=== PATIENT | male | born 1935 | race Caucasian/White ===

== ENCOUNTER → 2016-12-29 | Outpatient (CLI) | payer MEDICARE ==
[~2016-12-29] MED LIST: /GLIM4TA OR; ACET500C OR; ALBU17IN2 PO; ASPI325T PO; ATEN100T OR; ATEN100T PO; AUGM875T28 PO; CENTTAB47 PO; CIPR-249 PO; COLA100C5 PO; FLAG500T PO; GLUC1000 OR; HUMA100I3 SC; HUMA100I5 SC; HUMULIN N SUBQ; HYTRIN PO; INSULANT SC; INSUNSD SC; LISI-542 PO; LISI5TAB OR; METF10004 PO; MOM30SS PO; MYLI40DR PO; NIAC500T5 PO; OXYC10TA12 PO; PERC5TAB12 PO; POLYOPD OU; PROT1TAB2 PO; SIMV20TA2 OR; SIMV40TA2 PO; TERA10CA3 PO; TERA5CA PO; TERA5CAP3 OR; TYLE325T5 PO; ZOFR4TAB3 PO
--- NOTE | 2016-12-29 11:35 | REP ---
MRI ABDOMEN WITHOUT AND WITH IV GADOLINIUM: HISTORY: Non-small cell lung carcinoma. Granuloma. Comparison study December 15, 2014. MRI TECHNIQUE: Axial and coronal T1 and T2-weighted scans are obtained including true phase, spin echo, turbo spin echo, in- and [id number], and sequential post gadolinium enhanced 2D gradient echo T1-weighted fat sat images. Gadolinium enhancement dose: 16 mL of intravenous ProHance is administered. MRI FINDINGS: T2-weighted scans demonstrate a 0.3 cm cyst in the lateral aspect mid pole level right kidney. No hepatic or splenic mass lesion is seen. The adrenals are unremarkable bilaterally. There is no evidence of ascites. No upper abdominal or periaortic adenopathy is seen. No pancreatic mass lesion is observed. The gallbladder is not visualized consistent with surgical absence. Dynamically acquired sequential post gadolinium enhanced images show no visible liver lesion. No other abnormality. IMPRESSION: A small cyst lateral aspect right mid kidney. Otherwise negative MRI study of the abdomen without and with IV gadolinium. Signed by Segundo Lopez MD 12/29/2016 05:14 P
== END ==
LOC: M RAD 09:00
PROVIDERS: ATTEND Internal Medicine Medical Oncology
DX: C34.90 Malignant neoplasm of unspecified part of unspecified bronchus or lung (principal); J98.4 Other disorders of lung
CPT/HCPCS: 74183; A9576

== ENCOUNTER → 2017-01-04 | Outpatient (CLI) | payer MEDICARE ==
--- NOTE | 2017-01-04 21:32 | REP ---
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 Comparison: Comparison MRI study abdomen December 29, 2016. Comparison PET/CT study January 22, 2015. Comparison CT study of the chest January 12, 2016. TECHNIQUE: 50 minutes following the intravenous injection of a 10.3 mCi dose of F-18 FDG, three-dimensional PET scintigraphy is acquired from the skull base to the proximal thighs. Triplanar noncontrast CT scanning is acquired through the same anatomic range for attenuation correction, and image registration with scan parameters optimized to minimize radiation exposure to the patient. PET scintigraphy and CT datasets were fused and displayed on a workstation with multiplanar and projection display capability. PET/CT Findings: There are unfortunately several foci of hypermetabolic uptake in the chest. The most avid is in a subcarinal lymph node. This 2.7 cm lymph node shows maximum standard uptake value of 8.3. No other mediastinal hypermetabolic uptake is seen. There is hypermetabolic uptake just posterior to the right hilus medially with maximum SUV value in a 1.5 cm area of 5.4. In addition, there is hypermetabolic uptake anteriorly and medially in the right lung at the level of the transverse aorta with maximum SUV value 5.5 within the fibrotic soft tissues adjacent to the mediastinum. These soft tissues are more full than on the January 12, 2016 prior study. There is new small right pleural fluid and a small quantity of left pleural fluid. There is mildly increased although nonhypermetabolic uptake along the right pleural lining of the lung, maximum SUV value under 2. There is a small hypermetabolic lymph node focus deep to the pectoralis minor muscle high in the right axilla in a subcentimeter lymph node with maximum standard uptake value of 3.4. There is a tiny internal mammary john focus with maximum standard uptake value of 2.3. There is a 1 cm john focus in the epicardial fat at the base of the heart anteriorly to the right of midline with maximum standard uptake value of 3.0. These foci are all new and should be considered suspicious. No abnormal uptake is seen in the left lung. There is an AP window region mediastinal lymph node which is 1 cm in diameter and which is hypermetabolic as well. This has maximum standard uptake value of 3.7. Lastly in the chest, there is a mildly hypermetabolic small john focus of increased uptake in a paraesophageal lymph node with maximum standard uptake value of 3.2. There is a small quantity of pericardial fluid. No abnormal hypermetabolic lesion is seen within the liver. The hypermetabolic john uptake in celiac axis lymph nodes in the upper abdomen with maximum standard uptake value 2.9. This must be considered suspicious as well. No other abnormal hypermetabolic uptake is seen in the abdomen or pelvis. Impression: Suspicious foci of hypermetabolic uptake in the subcarinal and AP window region of the mediastinum in lymph nodes as well as in several foci in the right chest medially and along the pleural surface. New small bilateral pleural effusions and a small pericardial effusion. Mildly hypermetabolic john uptake is seen in celiac axis lymph node in the upper abdomen and in a small paraesophageal lymph node. There is also a suspicious right axillary lymph john focus. Signed by Segundo Lopez MD 01/05/2017 09:32 A
== END ==
LOC: M PLARAD 09:23
PROVIDERS: ATTEND Internal Medicine Medical Oncology
DX: C34.11 Malignant neoplasm of upper lobe, right bronchus or lung (principal); R91.8 Other nonspecific abnormal finding of lung field
CPT/HCPCS: 78815; A9552

== ENCOUNTER → 2017-01-09 | Outpatient (REF) | payer MEDICARE | LOC: M LAB REF 12:52 | PROVIDERS: ATTEND Internal Medicine Medical Oncology | DX: C34.90 Malignant neoplasm of unspecified part of unspecified bronchus or lung (principal) ==

== ENCOUNTER → 2017-01-16 | Outpatient (REF) | payer MEDICARE ==
[2017-01-16 19:42] LABS: FREE T4 0.24 NG/DL (0.76-1.46)
== END ==
LOC: M LAB REF 17:26
PROVIDERS: ATTEND Internal Medicine Medical Oncology
DX: C34.90 Malignant neoplasm of unspecified part of unspecified bronchus or lung (principal)

== ENCOUNTER → 2017-01-30 | Outpatient (CLI) | payer MEDICARE ==
--- NOTE | 2017-01-30 17:35 | REP ---
UNILATERAL LEFT LOWER EXTREMITY DUPLEX VEINS: HISTORY: Leg pain. There are no filling defects in the deep venous system. The deep venous system is patent. IMPRESSION: There is no deep venous thrombosis. Signed by Garfield Álvarez MD 01/30/2017 06:18 P
== END ==
LOC: M RAD 16:05
PROVIDERS: ATTEND Internal Medicine Medical Oncology
DX: M79.605 Pain in left leg (principal); M79.89 Other specified soft tissue disorders

== ENCOUNTER → 2017-02-28 | Outpatient (REF) | payer MEDICARE ==
[2017-02-28 19:12] LABS: FREE T4 0.6 NG/DL (0.76-1.46)
== END ==
LOC: M LAB REF 16:53
PROVIDERS: ATTEND Internal Medicine Medical Oncology
DX: C34.90 Malignant neoplasm of unspecified part of unspecified bronchus or lung (principal)

== ENCOUNTER → 2017-03-02 | Outpatient (CLI) | payer MEDICARE ==
--- NOTE | 2017-03-02 18:40 | ECHO ---
DATE OF PROCEDURE: 03/02/2017 REFERRING PHYSICIAN: Dr. Cecilia Angeles Study was performed 03/02/2017 on an outpatient basis for indication chemotherapy. The patient measures 70 inches and weighs 173 pounds. DIMENSIONS: IVS: 1.2 LV: 4.9 LVPW: 1.1 LA: 4.0 Aorta: 4.0 FINDINGS: The study is of acceptable technical quality. Left ventricle is normal size and normal systolic function. I estimate ejection fraction (EF) around 65%. No segmental wall motion abnormalities are appreciated. Borderline left ventricular hypertrophy (LVH) is present. Right ventricle appears grossly normal size and systolic function. Left atrium is at least mildly enlarged. Right atrium appears normal. There is small pericardial effusion without signs of cardiac compression. It is principally adjacent to right ventricle and right atrial free wall. Aortic valve is sclerotic. It has normal mobility though. There are also degenerative abnormalities of mitral valve with mild mitral annular calcifications and some thickening of mitral leaflets. Tricuspid valve appears normal. Pulmonic valve was not well seen. Inferior vena cava is of normal size. Aortic root is dilated (4.0 cm). Aortic arch and abdominal aorta were not well seen. Doppler interrogation reveals no aortic stenosis and mild aortic insufficiency. There is also mild mitral insufficiency and mild tricuspid insufficiency. Calculated pulmonary artery pressure is in 30s corresponding to mild pulmonary hypertension. Mitral inflow pattern and tissue Doppler imaging of mitral annulus revealed grade 1 diastolic dysfunction (E prime velocities of septal and lateral mitral annulus are 6.7 and 7.6 cm/s respectively). CONCLUSIONS: 1. Study is of acceptable technical quality. 2. Normal left ventricular (LV) size with borderline LVH and preserved LV systolic function. Grade 1 diastolic dysfunction. 3. Small noncompressive pericardial effusion. 4. Aortic sclerosis with no stenosis and mild insufficiency. 5. Normal central venous pressure. 6. Probably mild pulmonary hypertension. 7. Mildly dilated aortic root (4.0 cm). COMMENTS: Subacute bacterial endocarditis (SBE) prophylaxis is not recommended. If there is suspicion for malignant etiology of pericardial effusion, then short-term followup within the next few weeks is recommended.
== END ==
LOC: M CARPUL 10:23
PROVIDERS: ATTEND Internal Medicine Medical Oncology
DX: Z92.21 Personal history of antineoplastic chemotherapy (principal); I31.3 Pericardial effusion (noninflammatory); I70.0 Atherosclerosis of aorta; I77.819 Aortic ectasia, unspecified site; I35.8 Other nonrheumatic aortic valve disorders

== ENCOUNTER → 2017-03-16 | Outpatient (CLI) | payer MEDICARE ==
[~2017-03-16] MED LIST changes: +ISOVUE-370 76% 100ML VIAL (Q9967) As Ordered ONE
--- NOTE | 2017-03-16 15:57 | REP ---
CT of the chest with IV contrast: Comparisons are the chest CT of 01/12/2016 and plain film PA and lateral chest of 02/28/2017. The patient has a history of poorly differentiated right upper lobe adenocarcinoma stage III a post lobectomy in January 2015. 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 However, the region has increased in size from 01/12/2016, raising the possibility of tumor recurrence. There is an enlarged right hilar node measuring up to 15 mm short axis has a change from the comparison CT. There is soft tissue density and increased size in the subcarinal zone measuring up to 2.5 cm as a change from the prior CT, compatible with subcarinal enlarging nodes. There is increased soft tissue density in the aorticopulmonic window measuring up to 13 mm short axis, compatible with progressive lymph node enlargement. No axillary lymph node enlargement is identified. There are small bilateral pleural effusions. There are chronic fibrotic changes and bulla throughout the lung arrieta bilaterally, unchanged. Thoracic aorta is unremarkable except for calcified atheroma. Cardiac size is normal. There is a small pericardial effusion. In the upper abdomen. There are faintly visible tiny hypodensities in the dome of the liver, not present on the comparison CT, suggestive of metastases. On the comparison study. There is pneumobilia. This is no longer present. There are surgical clips in the gallbladder fossa. There is no adrenal mass. 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 Lymph nodes in the left hilus, aorticopulmonic window, subcarinal zone and mediastinum have enlarged. There are small bilateral pleural effusions. Tiny low densities are identified in the dome of the liver, not definitely present previously, possibly a tiny hepatic metastases. Small pericardial effusion. Signed by Nadeem Vieira MD 03/16/2017 03:49 P
== END ==
LOC: M RAD 11:04
PROVIDERS: ATTEND Internal Medicine Medical Oncology
DX: R91.8 Other nonspecific abnormal finding of lung field (principal)
CPT/HCPCS: 71260; Q9967

== ENCOUNTER → 2017-03-22 | Outpatient (REF) | payer MEDICARE ==
[~2017-03-22] MED LIST changes: -ISOVUE-370 76% 100ML VIAL (Q9967) As Ordered ONE
[2017-03-22 15:54] LABS: FREE T4 0.5 NG/DL (0.76-1.46)
== END ==
LOC: M LAB REF 15:12
PROVIDERS: ATTEND Internal Medicine Medical Oncology
DX: C34.90 Malignant neoplasm of unspecified part of unspecified bronchus or lung (principal); Z92.21 Personal history of antineoplastic chemotherapy